=== PATIENT | male | born 1995 | race African-American/Black ===

== ENCOUNTER 2022-04-16 23:19 | Emergency (ER) | payer OTHER ==
[~2022-04-16] VITALS: Ht 160 cm; Wt 57.8 kg
[2022-04-17 00:52] LABS: HEMATOCRIT 46.1 % (42.0-52.0); HEMOGLOBIN 15.2 g/dl (13.5-17.5); MEAN CORPUSCULAR VOLUME 75.9 fl (80.0-96.0); PLATELET COUNT, AUTOMATED 187 10^3/uL (150-450); RED BLOOD COUNT 6.07 10^6/uL (4.30-6.10); WHITE BLOOD COUNT 5.2 10^3/uL (4.0-10.0)
[2022-04-17 01:30] LABS: AMPHETAMINES LEVEL URINE NEGATIVE (NEGATIVE); BARBITURATES URINE NEGATIVE (NEGATIVE); BENZODIAZEPINES URINE NEGATIVE (NEGATIVE); CANNABINOIDS URINE NEGATIVE (NEGATIVE); COCAINE METABOLITE URINE NEGATIVE (NEGATIVE); METHADONE URINE NEGATIVE (NEGATIVE); OPIATES URINE NEGATIVE (NEGATIVE); PHENCYCLIDINE URINE NEGATIVE (NEGATIVE)
[2022-04-17 01:47] LABS: ACETAMINOPHEN LEVEL < 2.0 UG/ML (10.0-30.0); ALT/SGPT 29 U/L (12-78); BILIRUBIN,DIRECT 0.3 MG/DL (0.0-0.2); BILIRUBIN,TOTAL 0.9 MG/DL (0.2-1.0); BLOOD UREA NITROGEN 8 MG/DL (7-18); CALCIUM LEVEL 8.9 MG/DL (8.5-10.1); CARBON DIOXIDE LEVEL 28 MEQ/L (21-32); CHLORIDE LEVEL 111 MEQ/L (98-107); CREATININE FOR GFR 0.91 MG/DL (0.70-1.30); ETHYL ALCOHOL (ETHANOL) < 0.003 % (0.000-0.010); GLOMERULAR FILTRATION RATE > 60.0 (>60); GLUCOSE, FASTING 73 MG/DL (70-100); POTASSIUM SERUM 4.3 MEQ/L (3.5-5.1); SALICYLATE LEVEL < 1.7 MG/DL (5.0-30.0); SODIUM LEVEL 143 MEQ/L (136-145); TOTAL PROTEIN 7.1 GM/DL (6.4-8.2)
[2022-04-17] MEDS ORDERED: HOME MED LIST COMPLETE! XX SCH (03:05)
[2022-04-17 06:36] VITALS: BP 114/61
== END 2022-04-17 08:05 | disposition home or self-care (01) ==
LOC: M ED 23:19
DX: F32.A Depression, unspecified (principal)

== ENCOUNTER 2023-07-09 12:25 | Emergency (ER) | payer OTHER ==
[~2023-07-09] VITALS: Ht 177.8 cm; Wt 55.8 kg
[2023-07-09] MEDS ORDERED: ACET325C5 PO (12:59)
[2023-07-09] MEDS ORDERED: diphenhydrAMINE 50MG/ML VIAL IV STA (14:06)
[2023-07-09] MEDS ORDERED: METOCLOPRAMIDE INJ 10MG/2ML VIAL IV ONE (14:10)
[2023-07-09] MEDS ORDERED: NS 1,000 ML IV ONE (14:10)
[2023-07-09 16:05] VITALS: BP 114/77; TEMP 98.3; O2SAT 98
== END 2023-07-09 16:07 | disposition home or self-care (01) ==
LOC: M ED 12:25
DX: R51.9 Headache, unspecified (principal); Z79.1 Long term (current) use of non-steroidal anti-inflammatories (NSAID)
CPT/HCPCS: 82375; 96361; 96374; 99284; J1200; J2765